=== PATIENT | female | born 1990 | race Caucasian/White ===

== ENCOUNTER 2024-09-18 19:04 | Emergency (ER) | payer OTHER, SELFPAY ==
[2024-09-18 19:07] VITALS: BP 100/75; PULSE 112; RESP 18; TEMP 37.6; O2SAT 97
--- NOTE | 2024-09-18 19:17 | ED_ITS ---
HPI - URI/Sore Throat General Chief Complaint: Upper Respiratory Infection Stated Complaint: upper respiratory Time Seen by Provider: 09/18/24 19:06 Source: patient Mode of arrival: ambulatory Limitations: no limitations History of Present Illness HPI Narrative: this is a 34-year-old female that presents with a five-day history of cough congestion with some frontal sinus headache with low-grade fever, with no au dible wheezing no nausea vomiting no abdominal pain. Was seen few days ago at a clinic and had a negative influenza negative COVID test. MD elicited complaint: fever, cough, nasal congestion and sinus pain Onset (ago): day(s) Consistency: constant Severity: mild Related Data Allergies Allergy/AdvReac Type Severity Reaction Status Date / Time No Known Allergies Allergy Verified 09/18/24 19:14 Review of Systems Review of Systems: All systems reviewed & are unremarkable except as noted in HPI and below PMFSH Past Medical History Medical History Patient denies medical problems Exam Const: General: healthy appearing and no acute distress Nutritional Appearance: well nourished Orientation/consciousness: patient oriented x3 Limitations: no limitations HENMT: Head: normal to inspection Other: frontal sinus tenderness with palpation Neck: Neck: normal visual inspection, no lymphadenopathy and no meningeal signs Chest: Chest palpation & inspection: normal inspection of the chest Resp: Effort & Inspection: normal respiratory effort Auscultation: clear to auscultation bilaterally Cardio: Rate: regular rate Rhythm: regular rhythm GI: GI Palp: Yes Soft to palpation Auscultation: normal bowel sounds Skin: General skin exam: normal color Rashes: no rashes Course Course Emergency Course: patient received a dose of Zithromax p.o. and advised to take medication as prescribed. Vital Signs Vital signs: Vital Signs Temperature 37.6 C H 09/18/24 19:07 Pulse Rate 112 H 09/18/24 19:07 Respiratory Rate 18 09/18/24 19:07 Blood Pressure 100/75 09/18/24 19:07 Pulse Oximetry 97 09/18/24 19:07 Oxygen Delivery Room Air 09/18/24 19:07 Temperature 37.6 C H 09/18/24 19:07 Pulse Rate 112 H 09/18/24 19:07 Respiratory Rate 18 09/18/24 19:07 Blood Pressure 100/75 09/18/24 19:07 Pulse Oximetry 97 09/18/24 19:07 Oxygen Delivery Room Air 09/18/24 19:07 Critical Care Time Critical Care Time Critical Care Time: No Discharge Plan Discharge Clinical Impression: Bronchitis Patient Disposition: Home, Self-Care Condition: Stable Instructions: Antibiotic Form, Acute Bronchitis (ED) Additional Instructions: take medication as prescribed and follow with primary if symptoms persist or worsen. Prescriptions: New azithromycin [Zithromax Z-Nehemiah] 250 mg tablet See Rx Instructions .ROUTE .COMPLEX Qty: 6 0RF Rx Instructions: For 250 mg dose pack: take 500 mg today (day 1), then 250 mg for 4 days (days 2-5) benzonatate 200 mg capsule 200 mg PO TID Qty: 20 0RF Follow-up/Referrals: UNKNOWN,DOCTOR [Primary Care Provider] - Time of Disposition: 19:22
[2024-09-18] MEDS: AZITHROMYCIN 250 MG TABLET 500 MG PO (19:26)
[2024-09-18] MEDS: NAPROXEN 250 MG TABLET 500 MG PO (19:34)
== END 2024-09-18 19:39 | disposition home or self-care (01) ==
LOC: CHSED 19:23
PROVIDERS: Emergency Provider Emergency Medicine; PCP Family Medicine
DX: J40 Bronchitis, not specified as acute or chronic (principal)
CPT/HCPCS: 99283; A9270